=== PATIENT | female | born 1945 | race African-American/Black ===

== ENCOUNTER 2022-02-09 05:47 | Inpatient (IN) ==
[2022-02-09] MEDS ORDERED: SODIUM PHOSPHATE ENEMA 133 ML BOTTLE RECTAL ONE (05:56)
[2022-02-09] MEDS ORDERED: ALVIMOPAN 12 MG CAPSULE PO ONE (06:00)
[2022-02-09] MEDS ORDERED: cefTRIAXone 1,000 MG in SODIUM CHLORIDE 0.9% 100 ML IV ONE (06:00)
[2022-02-09] MEDS ORDERED: MINERAL OIL ENEMA 133 ML BOTTLE RECTAL ONE (06:00)
[2022-02-09] MEDS ORDERED: KETAMINE 500 MG/10 ML VIAL ONE (06:23)
[2022-02-09] MEDS ORDERED: propofoL 200 MG/20 ML VIAL IV ONE (06:23)
[2022-02-09] MEDS ORDERED: SUFentanil 50 MCG/ML AMP ONE (06:23)
[2022-02-09] MEDS ORDERED: LIDOCAINE 2% 5 ML VIAL ONE (06:23)
[2022-02-09] MEDS ORDERED: ROCURONIUM 50 MG/5 ML VIAL IV ONE ×2 (06:23→11:00)
[2022-02-09] MEDS ORDERED: SEVOFLURANE 1 UNIT/15 MINUTE INH ONE ×2 (06:23→11:25)
[2022-02-09] MEDS ORDERED: ROPIVACAINE 0.5% 30 ML VIAL ONE (06:38)
[2022-02-09] MEDS ORDERED: TISSUE ADHESIVE 1 EACH APPLICATOR TOP ONE (06:38)
[2022-02-09] MEDS ORDERED: ACETAMINOPHEN 500 MG TABLET ONE (06:40)
[2022-02-09] MEDS ORDERED: ACETAMINOPHEN 500 MG TABLET PO ONE (06:45)
[2022-02-09] MEDS ORDERED: BUPIVACAINE MPF 0.25% 30 ML VIAL ONE (06:50)
[2022-02-09] MEDS ORDERED: MANNITOL 12.5 GM/50 ML VIAL IV ONE (06:50)
[2022-02-09] MEDS ORDERED: ALBUMIN 5% 25.0 GM/500 ML VIAL IV ONE (06:50)
[2022-02-09] MEDS ORDERED: PHENYLEPHRINE DRIP 20 MG/250 ML PREMIX IV ONE (06:51)
[2022-02-09] MEDS: LACTATED RINGERS 1,000 ML IV SCH ×2 (06:55→21:50)
[2022-02-09] MEDS ORDERED: DEXAMETHASONE 4 MG/1 ML VIAL ONE ×2 (08:41)
[2022-02-09] MEDS ORDERED: GLYCOPYRROLATE 0.4 MG/2 ML VIAL ONE (08:41)
[2022-02-09] MEDS ORDERED: PHENYLEPHRINE 1 MG/10 ML SYRINGE IV ONE (08:41)
[2022-02-09] MEDS ORDERED: ONDANSETRON 4 MG/2 ML VIAL ONE (08:41)
[2022-02-09] MEDS ORDERED: LACTATED RINGERS 1,000 ML IV ONE (09:36)
[2022-02-09] MEDS ORDERED: SUGAMMADEX 200 MG/2 ML VIAL IV ONE (11:00)
[2022-02-09] MEDS ORDERED: HYDROmorphone 1 MG/1 ML SYRINGE IV PRN ×2 (11:42→12:06)
[2022-02-09] MEDS ORDERED: ONDANSETRON 4 MG/2 ML VIAL IV PRN ×2 (11:42→12:06)
[2022-02-09 12:00] LABS: Basophils % 0.1 % (0.0-0.8); Hematocrit 33.4 VOL% (35.7-47.0); Hemoglobin 10.9 GM/DL (12.0-16.0); Immature Granulocytes % 0.5 %; Immature Granulocytes Absolute 0.04 #; Lymphocytes # 0.9 10*3/uL (1.4-4.0); Lymphocytes % 12.4 % (21.3-54.2); Mean Corpuscular HGB Conc 32.6 GM/DL (32-36); Mean Corpuscular Volume 85.2 FL (87-102); Mean Platelet Volume 9.6 FL (9.6-12.0); Monocytes # 0.2 10*3/uL (0.11-0.8); Monocytes % 3.2 % (1.7-12.7); Neutrophils % 83.8 % (38.7-73.9); Platelet Count 198 T/CUMM (130-400); Red Blood Count 3.92 MC/CUMM (3.8-5.5); Red Cell Distribution Width 13.3 % (9.3-17.3); White Blood Count 7.6 T/CUMM (4-12)
[2022-02-09] MEDS ORDERED: SIMETHICONE CHEW 125 MG TABLET PO PRN (12:06)
[2022-02-09] MEDS ORDERED: PROMETHAZINE 25 MG/1 ML VIAL IM PRN (12:06)
[2022-02-09] MEDS ORDERED: oxyCODONE/ACETAMINOPHEN 5-325 MG TABLET PO PRN (12:06)
[2022-02-09] MEDS ORDERED: diphenhydrAMINE 50 MG/1 ML VIAL IV PRN (12:06)
[2022-02-09 12:18] LABS: Albumin 3.9 G/DL (3.4-5.0); Bilirubin,Total 0.5 MG/DL (0.20-1.00); Calcium 9.4 MG/DL (8.5-10.1); Osmolality,Calculated 264.5 MOS/KG (273-304); Potassium 3.5 MMOL/L (3.5-5.1); Total Protein 7.1 G/DL (6.4-8.2)
[2022-02-09 12:30] LABS: Mucus,Urine Occasional /LPF (Occasional); Squamous Epithelial Cell,Urine Occasional /HPF (0-10)
[2022-02-09 12:31] LABS: Bilirubin,Urine Negative (Negative); Blood, Urine Negative (Negative); Glucose,Urine (UA) Negative (Negative); Ketones,Urine Trace mg/dL (Negative); Nitrite,Urine Negative (Negative); Protein,Urine Negative (Negative); Urine Appearance Clear (Clear); Urine Color Yellow (Yellow); Urine Specific Gravity 1.015 (1.001-1.035); Urine Urobilinogen 0.2 eU/dL (<2.0)
[2022-02-09] MEDS: ACETAMINOPHEN 325 MG TABLET PO SCH ×2 (14:24→21:49)
[2022-02-09] MEDS: SODIUM CHLORIDE 0.9% 1,000 ML IV SCH (20:41)
[2022-02-09] MEDS: FAMOTIDINE 20 MG TABLET PO SCH (20:41)
[2022-02-10] MEDS: SODIUM CHLORIDE 0.9% 1,000 ML IV SCH ×2 (02:08→03:51)
[2022-02-10] MEDS: ACETAMINOPHEN 325 MG TABLET PO SCH ×4 (03:51→20:34)
[2022-02-10 05:25] LABS: Basophils % 0.3 % (0.0-0.8); Hematocrit 30.6 VOL% (35.7-47.0); Hemoglobin 10.3 GM/DL (12.0-16.0); Immature Granulocytes % 0.5 %; Immature Granulocytes Absolute 0.05 #; Lymphocytes % 9.7 % (21.3-54.2); Mean Corpuscular HGB Conc 33.7 GM/DL (32-36); Mean Corpuscular Volume 84.1 FL (87-102); Mean Platelet Volume 10.1 FL (9.6-12.0); Monocytes # 0.9 10*3/uL (0.11-0.8); Neutrophils % 80.5 % (38.7-73.9); Platelet Count 185 T/CUMM (130-400); Red Blood Count 3.64 MC/CUMM (3.8-5.5); Red Cell Distribution Width 13.3 % (9.3-17.3); White Blood Count 10.1 T/CUMM (4-12)
[2022-02-10 05:50] LABS: Calcium 8.8 MG/DL (8.5-10.1); Osmolality,Calculated 266.2 MOS/KG (273-304); Potassium 3.3 MMOL/L (3.5-5.1)
[2022-02-10 05:53] LABS: Folate 8.54 NG/ML (5.38-24.0)
[2022-02-10 05:55] LABS: % Iron Saturation 15.1 % (18-50); Risk Ratio 1.83; Thyroid Stimulating Hormone 0.415 uIU/ml (0.358-3.74); VLDL Cholesterol 6.6 MG/DL
[2022-02-10] MEDS ORDERED: POTASSIUM CHLORIDE 20 MEQ TABLET PO PRN (07:05)
[2022-02-10] MEDS ORDERED: POTASSIUM CHLORIDE 20 MEQ TABLET PO ONE (07:30)
[2022-02-10] MEDS: FERROUS SULFATE 325 MG TABLET PO SCH ×2 (08:31→16:06)
[2022-02-10] MEDS: ATORVASTATIN 10 MG TABLET PO SCH (08:31)
[2022-02-10] MEDS: FAMOTIDINE 20 MG TABLET PO SCH ×2 (08:31→16:06)
[2022-02-10] MEDS: allopurinoL 100 MG TABLET PO SCH (08:32)
[2022-02-10] MEDS: ANASTROZOLE 1 MG TABLET PO SCH (08:32)
[2022-02-10] MEDS: cefTRIAXone 1,000 MG in SODIUM CHLORIDE 0.9% 100 ML IV SCH (08:32)
[2022-02-10] MEDS: ALVIMOPAN 12 MG CAPSULE PO SCH ×2 (08:32→20:34)
[2022-02-10] MEDS ORDERED: CALCIUM (CARBONATE)/VITAMIN D 600 MG-400 UNIT TABLET PO SCH (09:00)
[2022-02-10] MEDS ORDERED: amLODIPine 10 MG TABLET PO SCH (09:00)
[2022-02-11] MEDS: ACETAMINOPHEN 325 MG TABLET PO SCH ×2 (03:13→09:28)
[2022-02-11 05:03] LABS: Basophils % 0.3 % (0.0-0.8); Eosinophils % 0.4 % (0.00-10.9); Hematocrit 32.6 VOL% (35.7-47.0); Hemoglobin 10.6 GM/DL (12.0-16.0); Immature Granulocytes % 0.5 %; Immature Granulocytes Absolute 0.05 #; Lymphocytes # 0.9 10*3/uL (1.4-4.0); Lymphocytes % 8.5 % (21.3-54.2); Mean Corpuscular HGB Conc 32.5 GM/DL (32-36); Mean Corpuscular Volume 86.2 FL (87-102); Mean Platelet Volume 10.4 FL (9.6-12.0); Monocytes # 0.9 10*3/uL (0.11-0.8); Monocytes % 8.2 % (1.7-12.7); Neutrophils % 82.1 % (38.7-73.9); Platelet Count 192 T/CUMM (130-400); Red Blood Count 3.78 MC/CUMM (3.8-5.5); Red Cell Distribution Width 13.5 % (9.3-17.3); White Blood Count 10.4 T/CUMM (4-12)
[2022-02-11 05:24] LABS: Calcium 8.8 MG/DL (8.5-10.1); Osmolality,Calculated 265.2 MOS/KG (273-304); Potassium 3.5 MMOL/L (3.5-5.1)
[2022-02-11] MEDS ORDERED: amLODIPine 10 MG TABLET PO SCH (09:00)
[2022-02-11] MEDS: ATORVASTATIN 10 MG TABLET PO SCH (09:28)
[2022-02-11] MEDS: ALVIMOPAN 12 MG CAPSULE PO SCH (09:29)
[2022-02-11] MEDS: cefTRIAXone 1,000 MG in SODIUM CHLORIDE 0.9% 100 ML IV SCH (09:29)
[2022-02-11] MEDS: allopurinoL 100 MG TABLET PO SCH (09:29)
[2022-02-11] MEDS: ANASTROZOLE 1 MG TABLET PO SCH (09:29)
[2022-02-11] MEDS: FERROUS SULFATE 325 MG TABLET PO SCH (09:29)
[2022-02-11] MEDS: FAMOTIDINE 20 MG TABLET PO SCH (09:29)
[2022-02-11 11:50] VITALS: BP 137/76
== END 2022-02-11 15:20 | disposition home or self-care (01) | DRG 657 ==
LOC: N.OR 05:47 → N.3E 05:48 → N.SDSINP 05:48 → N.3E 12:06
PROVIDERS: ADMIT Surgery; ATTEND Surgery